=== PATIENT | female | born 1960 | race Asian ===

== ENCOUNTER → 2020-09-11 13:41 | Outpatient (CLI) | payer OTHER, SELFPAY ==
--- NOTE | ~2020-09-11 | US_ITS ---
EXAMINATION: US carotid duplex BI DATE: 09/11/2020 14:19 INDICATION: Carotid stenosis TECHNIQUE: Grayscale, color Doppler, and pulsed Doppler images of the cervical carotid arteries were obtained. The degree of vessel stenosis is placed in one of the following categories: normal, <50%, 5 0-69%, >=70% but less than near-occlusion, near-occlusion, or total occlusion. Note that percent sten osis relative to normal distal artery lumen diameter is indirectly measured from velocity measurement s as described by Arian, et al. Radiology 2003; [id number]:[id number]. Notes: Normal: Peak systolic velocity <125 centimeters/sec and no plaque <50%. Peak systolic velocity <125 ( EDV <40; ICA/CCA PSV ratio <2.0; used these factors only a tandem lesions or low cardiac output or co ntralateral disease) 50-69 %: PSV 125-230 (EDV 40-100; ratio 2-4) >= 70% but less than near occlusion: PSV greater than 230 (EDV > 100; ratio> 4.0) Near Occlusion: PSV that is variable; markedly narrowed lumen Occlusion: Absent flow on color/spectral Doppler and no lumen on cedeño scale. COMPARISON: None. FINDINGS: RIGHT: The right common carotid artery (CCA) peak systolic velocity (PSV) is 94 cm/s. The right internal car otid artery (ICA) PSV is 72 cm/s. The right ICA end-diastolic velocity (EDV) is 27 cm/s. The right IC A/CCA PSV ratio is 0.8. The external carotid artery (ECA) PSV is 74 cm/s. There is antegrade flow in the right vertebral artery. LEFT: The left CCA PSV is 82 cm/s. The left ICA PSV is 72 cm/s. The left ICA EDV is 30 cm/s. The left ICA/C CA PSV ratio is 0.9. The ECA PSV is 61 cm/s. There is antegrade flow in the left vertebral artery. IMPRESSION: 1. Less than 50% stenosis in the right internal carotid artery by sonographic criteria. 2. Less than 50% stenosis in the left internal carotid artery by sonographic criteria. Reviewed, dictated and finalized at location A. STRIAL/ORGANIZATIONAL PSYCHOLOGIST IMPRESSION: 1. Less than 50% stenosis in the right internal carotid artery by sonographic evette lópez. 2. Less than 50% stenosis in the left internal carotid artery by sonographic fina emmanuel.
== END ==
PROVIDERS: Visit Provider Chiropractor
DX: R42 Dizziness and giddiness (principal)
CPT/HCPCS: 93880

== ENCOUNTER 2025-05-18 14:19 | Outpatient (CLI) | payer OTHER, SELFPAY ==
--- NOTE | ~2025-05-18 | XR_ITS ---
XR hip RT min 2V 05/18/2025 14:54 Indication: Right hip pain Procedure: 2 views right hip Comparison: No prior studies for comparison. Findings: Severe osteoarthritis right hip. No fracture, subluxation or dislocation. There is osteitis pubis. No soft tissue abnormality. Impression: 1: Severe osteoarthritis of the right hip. Reviewed, dictated and finalized at location O. Impression: 1: Severe osteoarthritis of the right hip.
--- NOTE | ~2025-05-18 | XR_ITS ---
XR knee RT min 4V 05/18/2025 14:54 Indication: Right knee pain Procedure: 4 views right knee Comparison: No prior studies for comparison. Findings: There is anatomic alignment. No significant joint space narrowing. No joint effusion. No foreign bodies. Impression: 1: No significant bone or joint abnormality. Reviewed, dictated and finalized at location O. Impression: 1: No significant bone or joint abnormality.
== END 2025-05-18 14:20 | disposition home or self-care (01) ==
LOC: MICIMG 14:23
PROVIDERS: PCP Chiropractor; Visit Provider Chiropractor
DX: M25.561 Pain in right knee (principal); M16.11 Unilateral primary osteoarthritis, right hip
CPT/HCPCS: 73502; 73564